=== PATIENT | male | born 1985 | race African-American/Black ===

== ENCOUNTER 2017-01-28 19:43 | Emergency (ER) | payer SELFPAY ==
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
[2017-01-28] MEDS ORDERED: IBUPROFEN 600 MG TABLET PO ONE (20:58)
[2017-01-28] MEDS ORDERED: HYDROCODONE/ACETAMINOPHEN 5-325 MG TABLET PO ONE (20:58)
[2017-01-28 21:53] VITALS: BP 106/35
== END 2017-01-28 21:51 | disposition home or self-care (01) ==
LOC: ER 19:43
DX: S81.802A Unspecified open wound, left lower leg, initial encounter (principal); W34.00XA Accidental discharge from unspecified firearms or gun, initial encounter
CPT/HCPCS: 99283

== ENCOUNTER 2018-03-21 22:03 | Emergency (ER) | payer SELFPAY ==
[2018-03-21 22:11] VITALS: BP 127/82
[2018-03-21] MEDS ORDERED: SULFAMETHOXAZOLE/TRIMETHOPRIM 800-160 MG TABLET PO ONE (22:36)
[2018-03-21] MEDS ORDERED: CLINDAMYCIN HCL 150 MG CAPSULE PO ONE (22:36)
[2018-03-21] MEDS ORDERED: HYDROCODONE/ACETAMINOPHEN 5-325 MG (6 TAB/ER DISP) PO PRN (22:51)
[2018-03-21] MEDS ORDERED: HYDROCODONE/ACETAMINOPHEN 5-325 MG TABLET PO ONE (22:51)
--- NOTE | 2018-03-21 22:55 | ER Document Report ---
ED General - General Chief Complaint: Rectal Abscess Stated Complaint: SKIN PROBLEM Time Seen by Provider: 03/21/18 22:33 Notes: Patient is a 32-year-old male who presents with complaint of a possible abscess near his anal area. Patient says he first noticed it this morning and it continued to grow in size for the day and therefore came to the ER. No previous history of abscesses in this area. No fevers. No vomiting. No diarrhea. No other complaints at this time. Has no chronic medical problems and does not take any medications. TRAVEL OUTSIDE OF THE [place] IN LAST 30 DAYS: No - Related Data Allergies/Adverse Reactions: No Known Allergies Allergy (Unverified 07/29/14 15:31) Past Medical History - Social History Smoking Status: Unknown if Ever Smoked Chew tobacco use (# tins/day): No Frequency of alcohol use: None Drug Abuse: None Family History: Reviewed & Not Pertinent Patient has suicidal ideation: No Patient has homicidal ideation: No Pulmonary Medical History: Reports: Hx Asthma - childhood Renal/ Medical History: Denies: Hx Peritoneal Dialysis - Immunizations Hx Diphtheria, Pertussis, Tetanus Vaccination: Yes - 2013 Review of Systems - Review of Systems Notes: My Normal Review Basic REVIEW OF SYSTEMS: CONSTITUTIONAL : Denies fever, chills, or sweats. Denies recent illness. RESPIRATORY: Denies cough, cold, or chest congestion. Denies shortness of breath, difficulty breathing, or wheezing. GASTROINTESTINAL: Denies abdominal pain. Denies nausea, vomiting, or diarrhea. Denies constipation. Last BM: SKIN: Perianal abscess NEUROLOGICAL: Denies altered mental status or loss of consciousness. D ALL OTHER SYSTEMS REVIEWED AND NEGATIVE. Physical Exam - Vital signs Vitals: Temp Pulse Resp BP Pulse Ox 98.7 F 115 H 16 127/82 H 100 03/21/18 22:10 03/21/18 22:10 03/21/18 22:10 03/21/18 22:10 03/21/18 22:10 - Notes Notes: General Appearance: Well nourished, alert, cooperative, no acute distress, mild obvious discomfort. Well appearing. Vitals: reviewed, See vital signs table. Eyes: PERRL, EOMI, Conjuctiva clear Rectal: Patient is a small 2 cm superficial appearing abscess in the perianal area just to the right of the anus itself. This appears to be superficial with the subcutaneous tissue. It has already come to a head. No swelling or fluctuance in the anus itself. No significant surrounding cellulitis. Extremities: good pulses in all extremities, no edema. Skin: warm, dry, appropriate color, no rash Neuro: speech clear, oriented x 3, normal affect, responds appropriately to questions. Course - Re-evaluation Re-evalutation: 03/21/18 23:05 Abscess was incised and drained. Approximately 2-3 mL's of purulent drainage was expressed. She tolerated the procedure well without any complications. The abscess itself appears before and after incision to be on his subcutaneous space. It does not appear to go deep. Does not extend into the anal region itself. I informed the patient that even though the abscess appears to be simple and superficial that he should still very low threshold to return to ER if he has any redness, sensation of increased swelling, increasing pain, or any sensation that the abscess is returning. I informed him that because location that if the abscess returns and grows this could allow to go quickly and therefore he should return to ER immediately. I will place patient on clindamycin and Bactrim. I will also give his pain medicine to go home with. I informed him he must take a shower every time he has a bowel movement and he should bathe and clean the area with soap and water at least 3 times a day. Patient agrees with plan will be discharged home. Dictation of this chart was performed using voice recognition software; therefore, there may be some unintended grammatical errors. - Vital Signs Vital signs: Temp Pulse Resp BP Pulse Ox 98.7 F 115 H 16 127/82 H 100 03/21/18 22:10 03/21/18 22:10 03/21/18 22:10 03/21/18 22:10 03/21/18 22:10 Procedures - Incision and Drainage perianal Type: Simple Blade size: 11 I&D procedure: Betadine prep applied Incision Method: Incision made by scalpel Amount/type of drainage: 2-3 mls of purulent drainage Discharge - Discharge Clinical Impression: Perianal abscess Condition: Good Disposition: HOME, SELF-CARE Additional Instructions: POST INCISION AND DRAINAGE: You have had an incision made to allow drainage of an abscess. The incision must remain open so that pus and debris can drain from the wound. If the abscess cavity is large, packing is placed. This keeps the tissues from collapsing and trapping pus inside, while the body shrinks the cavity. The packing may need to be replaced every day or two. The physician will instruct you on the packing. Keep a bulky dressing over the area. Replace it if it becomes saturated with blood or pus. Do not disturb the packing (if present). You may shower and cleanse the area with gentle soap and warm water two or three times a day. Local warmth may be soothing, and may promote faster healing. Return if you develop high fever or chills, or if you note spreading redness, increasing swelling, or increasing tenderness. ORAL NARCOTIC MEDICATION: You have been given a prescription for pain control. This medication is a narcotic. It's best taken with food, as nausea can result if taken on an empty stomach. Don't operate machinery or drive within six hours of taking this medication. Do not combine this medicine with alcohol, or with any medication which can cause sedation (such as cold tablets or sleeping pills) unless you get permission from the physician. Narcotics tend to cause constipation. If possible, drink plenty of fluids and eat a diet high in fiber and fruits. TRIMETHOPRIM-SULFA: You have been given a prescription for trimethoprim-sulfa (TMS, Septra, Bactrim). This is a combination antibiotic of the sulfa class, often used for urinary tract infections, middle ear infections, bronchitis, shigella intestinal infection, and Pneumocystis pneumonia. TMS is usually well-tolerated. Occasional side effects include nausea and decreased appetite. Septra is not recommended for infants less than two months of age. Do not take this medication if you have experienced severe side effects or allergy to sulfa medicine. You should stop this medicine at once and contact your physician if you develop any rash, joint pain, shortness of breath, bruising, or jaundice ( yellow color in the skin), or if you develop any other new or unusual symptoms. FOLLOW-UP CARE: Most simple abscesses will not require a follow up visit. If you had packing placed in the abscess, remove it as instructed by the physician. If you have been referred to a physician for follow-up care, call the physicians office for an appointment as you were instructed or within the next two days. If you experience worsening or a significant change in your symptoms, return to the Emergency Department at any time for re-evaluation. Please gt in the shower and wash your rectal area with soap and water anytime you use the bathroom or at least 3 times a day. Please than cover the area again with clean gauze. It is very important that you return to the ER immediately if you have worsening pain, increasing swelling, any fevers, or feel that your abscess has returned or is worsening in any way. Please follow up with the ER or a physician in 2 days for reevaluation. Prescriptions: Clindamycin HCl 300 mg PO ASDIR #56 capsule Sulfamethoxazole/Trimethoprim [Bactrim Ds Tablet] 1 each PO BID #14 tablet Forms: Return to Work
== END 2018-03-21 23:02 | disposition home or self-care (01) ==
LOC: ER 22:03
PROC: 0D9QXZZ Drainage of Anus, External Approach (ICD-10-PCS; principal; 2018-03-21)
DX: K61.1 Rectal abscess (principal); J45.909 Unspecified asthma, uncomplicated
CPT/HCPCS: 99283